=== PATIENT | male | born 2000 | race Caucasian/White ===

== ENCOUNTER 2019-03-06 15:57 | Emergency (ER) | payer OTHER ==
[~2019-03-06] VITALS: Ht 185.4 cm; Wt 68.3 kg
[2019-03-06 16:35] LABS: ALANINE AMINOTRANSFERASE 26 U/L (12-78); ALBUMIN 4.6 g/dL (3.4-5.0); ANION GAP 6 mmol/L (5-15); CALCIUM 9.5 mg/dL (8.5-10.1); CHLORIDE 102 mmol/L (98-107); CREATININE 1.26 mg/dL (0.7-1.3)
--- NOTE | 2019-03-06 16:35 | NUR ---
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
[2019-03-06 16:37] LABS: ALKALINE PHOSPHATASE 87 U/L (45-117); BILIRUBIN,TOTAL 0.9 mg/dL (0.2-1.0); SALICYLATE LEVEL < 1.7 mg/dL (2.8-20.0); TOTAL PROTEIN 7.8 g/dL (6.4-8.2)
[2019-03-06 16:38] LABS: BASOPHILS # (AUTO) 0.04 x10^3/uL (0-0.3); BASOPHILS % (AUTO) 1 % (0-1); EOSINOPHILS # (AUTO) 0.02 x10^3/uL (0-0.8); EOSINOPHILS % (AUTO) 0 % (1-7); LYMPHOCYTES # (AUTO) 1.29 x10^3/uL (1-6.1); LYMPHOCYTES % (AUTO) 16 % (22-44); MD NO; MEAN CORPUSCULAR HEMOGLOBIN 30.5 pg (27.5-34.5); MEAN CORPUSCULAR VOLUME 92.3 fL (81-97); MEAN PLATELET VOLUME 7.9 fL (7.4-10.4); MONOCYTES # (AUTO) 0.46 x10^3/uL (0-1.4); MONOCYTES % (AUTO) 6 % (2-9); NEUTROPHILS # (AUTO) 6.18 x10^3/uL (1.8-8.0); NEUTROPHILS % (AUTO) 77 % (42-75); PLATELET COUNT 247 x10^3/uL (130-400); RED BLOOD COUNT 5.46 x10^6/uL (4.38-5.82); RED CELL DISTRIBUTION WIDTH 13.3 % (9.4-14.8)
[2019-03-06 17:43] VITALS: BP 122/76
== END 2019-03-06 17:45 | disposition home or self-care (01) ==
LOC: ED 17:39
DX: F41.1 Generalized anxiety disorder (principal); F17.200 Nicotine dependence, unspecified, uncomplicated
CPT/HCPCS: 36415; 80053; 80307; 85025; 93005; 99284

== ENCOUNTER 2019-03-15 16:57 | Emergency (ER) | payer OTHER ==
[~2019-03-15] VITALS: Ht 185.4 cm; Wt 68.4 kg
--- NOTE | 2019-03-15 17:06 | NUR ---
Janes young in [facility] - 03/15/19 at 2010 by ASTRID REPORT TO SYLVIE GONZALEZ RN.
--- NOTE | 2019-03-15 18:22 | NUR ---
PT TO ROOM FROM LOBBY. NAD.
[2019-03-15] MEDS ORDERED: LORazepam 1MG TABLET PO ONE (18:30)
[2019-03-15] MEDS ORDERED: LORazepam 1MG TABLET ONE (18:36)
[2019-03-15] MEDS ORDERED: TESTOSTERONE (18:41)
--- NOTE | 2019-03-15 18:41 | NUR ---
PATIENT PRESENTS TO ED TODAY FOR CP, HX PANIC ATTACKS AND ANXIETY, DENIES CARDIAC HX. INDUCTION HEAT TREATER ON PATIENT. MEDICATIONS ADMINISTERED PER MD ORDER, PATIENT STATES HE WILL CALL A FRIEND TO PICK HIM UP IF DC'D HOME. TAMMY AT THIS TIME.
[2019-03-15 18:42] LABS: BASOPHILS # (AUTO) 0.03 x10^3/uL (0-0.3); BASOPHILS % (AUTO) 1 % (0-1); EOSINOPHILS # (AUTO) 0.22 x10^3/uL (0-0.8); EOSINOPHILS % (AUTO) 3 % (1-7); LYMPHOCYTES # (AUTO) 1.24 x10^3/uL (1-6.1); LYMPHOCYTES % (AUTO) 17 % (22-44); MD NO; MEAN CORPUSCULAR HEMOGLOBIN 31.8 pg (27.5-34.5); MEAN CORPUSCULAR VOLUME 93.5 fL (81-97); MEAN PLATELET VOLUME 7.7 fL (7.4-10.4); MONOCYTES # (AUTO) 0.43 x10^3/uL (0-1.4); MONOCYTES % (AUTO) 6 % (2-9); NEUTROPHILS # (AUTO) 5.54 x10^3/uL (1.8-8.0); NEUTROPHILS % (AUTO) 74 % (42-75); PLATELET COUNT 278 x10^3/uL (130-400); RED BLOOD COUNT 5.39 x10^6/uL (4.38-5.82); RED CELL DISTRIBUTION WIDTH 13.9 % (9.4-14.8)
[2019-03-15 18:51] LABS: ALBUMIN 4.6 g/dL (3.4-5.0); ANION GAP 7 mmol/L (5-15); CALCIUM 9.2 mg/dL (8.5-10.1); CHLORIDE 108 mmol/L (98-107); CREATININE 1.11 mg/dL (0.7-1.3)
[2019-03-15 18:55] LABS: TROPONIN I < 0.015 ng/mL (0.000-0.045)
--- NOTE | 2019-03-15 19:06 | NUR ---
REPORT TO SYLVIE GONZALEZ RN.
[2019-03-15] MEDS ORDERED: METOPROLOL 1 MG/ML, 5ML ONE (19:29)
[2019-03-15] MEDS ORDERED: SODIUM CHLORIDE FLUSH 10ML SYR IVF ONE (19:30)
[2019-03-15] MEDS ORDERED: METOPROLOL 1 MG/ML, 5ML IVPush PRN (19:30)
--- NOTE | 2019-03-15 19:35 | NUR ---
PT MEDICATED WITH 5MG LOPRESSOR FOR SINUS TACH HR 118. PT RESTING COMFORTABLY ON GURNEY. VSS AND WILL CONT TO MONITOR.
--- NOTE | 2019-03-15 19:36 | NUR ---
PER SYLVIE GONZALEZ RN. PATIENT'S HR WENT UP TO 170'S, AWARE. IVF AND LOPRESSOR ADMINISTERED BY SYLVIE RN. 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
--- NOTE | 2019-03-15 19:36 | NUR ---
REPORT FROM CARLOS MERCER RN, ASSUMED BACK CARE OF PATIENT AT THIS TIME. PATIENT RESTING IN GURNEY, PATIENT ANXIOUS AND COOPERATIVE. IVF ADMINISTERED BY SYLVIE CASTREJON. MONITOR IN PLACE, WILL CONTINUE TO MONITOR VS.
[2019-03-15] MEDS ORDERED: SODIUM CHLORIDE 0.9% 1,000 ML IV ONE (19:55)
[2019-03-15] MEDS ORDERED: SODIUM CHLORIDE 0.9% 1,000ML IVBOLUS ONE (20:00)
--- NOTE | 2019-03-15 20:04 | NUR ---
RESULTS BACK, CHART UP FOR RECHECK. HR NOW 97. PATIENT REPORTS FEELING BETTER AFTER IVF. SITTING IN GURNEY WATCHING TV, TAMMY.
[2019-03-15 20:29] LABS: T4 (THYROXINE) 8.9 mcg/dL (4.5-12.1)
[2019-03-15 20:38] LABS: THYROID STIMULATING HORMONE 3.08 mIU/L (0.358-3.740)
--- NOTE | 2019-03-15 20:58 | NUR ---
REPORT TO CASH OLIVER.
--- NOTE | 2019-03-15 21:05 | NUR ---
Report received and care assumed. Pt resting comfortably with no needs expressed. ERP recheck complete, awaiting d/c papers. VSS. NSR on monitor.
[2019-03-15 21:22] VITALS: BP 123/70
== END 2019-03-15 21:25 | disposition home or self-care (01) ==
LOC: ED 20:28
DX: F41.1 Generalized anxiety disorder (principal); R00.0 Tachycardia, unspecified; F17.200 Nicotine dependence, unspecified, uncomplicated
CPT/HCPCS: 36415; 71046; 80048; 82040; 84436; 84443; 84484; 85025; 85379; 93005; 96374; 99284; J7030

== ENCOUNTER 2019-04-16 14:53 | Outpatient (CLI) | payer OTHER ==
[~2019-04-16 14:53] MED LIST: TESTOSTERONE
== END 2019-04-16 23:59 | disposition home or self-care (01) ==
LOC: CFH 14:53
PROVIDERS: ATTEND Internal Medicine Cardiovascular Disease
DX: R07.9 Chest pain, unspecified (principal); F17.200 Nicotine dependence, unspecified, uncomplicated
CPT/HCPCS: 93306